=== PATIENT | male | born 1980 | race Caucasian/White ===

== ENCOUNTER 2018-07-26 18:09 | Emergency (ER) | payer BC ==
[~2018-07-26] VITALS: Ht 182.9 cm; Wt 81.8 kg
[2018-07-26 18:21] VITALS: Ht 182.9 cm; Wt 81.8 kg
[2018-07-26] MEDS ORDERED: BUSPAR5 MG (18:21)
[2018-07-26] MEDS ORDERED: ROBAXIN500 MG PO (19:57)
[2018-07-26] MEDS ORDERED: TORADOL10 MG PO (19:57)
[2018-07-26 20:56] VITALS: BP 120/82
== END 2018-07-26 20:59 | disposition home or self-care (01) ==
LOC: D.ER 18:09
DX: S29.9XXA Unspecified injury of thorax, initial encounter (principal); X58.XXXA Exposure to other specified factors, initial encounter; Y93.89 Activity, other specified; Y92.89 Other specified places as the place of occurrence of the external cause

== ENCOUNTER 2018-10-14 07:48 | Inpatient (IN) | payer BC ==
[~2018-10-14] VITALS: Ht 182.9 cm; Wt 82.7 kg
[~2018-10-14 07:48] MED LIST: BUSPAR5 MG; ROBAXIN500 MG PO; TORADOL10 MG PO
[2018-10-14 08:06] LABS: BASOPHILS 0.1 % (0-2); EOSINOPHILS 0.2 % (0-7); HEMATOCRIT 43.3 % (42.0-54.0); IMMATURE GRANULOCYTES 0.8 % (0-5); LYMPHOCYTES 5.8 % (15-50); MCH 30.3 pg (26.0-34.0); MCHC 34.6 g/dL (31.0-37.0); MCV 87.5 fL (80.0-100.0); MEAN PLATELET VOLUME 9.1 fL (7.4-10.4); MONOCYTES 7.8 % (2-11); NEUTROPHILS 85.3 % (40-80); PLATELET COUNT 220 10x3/uL (130-400); RBC 4.95 10x6/uL (4.20-6.10); RDW 13.2 % (11.5-14.5); WBC 18.5 10x3/uL (4.8-10.8)
[2018-10-14 08:24] LABS: ALBUMIN 3.6 g/dL (3.4-5.0); ALKALINE PHOSPHATASE 78 U/L (46-116); ALT (SGPT) 33 U/L (10-68); AMYLASE - SERUM 57 U/L (25-115); BILIRUBIN - TOTAL 0.54 mg/dL (0.2-1.3); CALC OSMOLALITY 279 mosm/kg (275-300); CALCIUM 8.3 mg/dL (8.5-10.1); CARBON DIOXIDE 22.7 mmol/L (21.0-32.0); CHLORIDE - SERUM 106 mmol/L (98-107); CREATININE - SERUM 1.1 mg/dL (0.6-1.3); GLUCOSE 103 mg/dL (74-106); LIPASE 165 U/L (73-393); POTASSIUM - SERUM 3.8 mmol/L (3.5-5.1); PROTEIN - SERUM 6.6 g/dL (6.4-8.2); SODIUM 139 mmol/L (136-145); TROPONIN-I < 0.017 ng/mL (0.000-0.060); UREA NITROGEN 18 mg/dL (7-18); eGFR NON AFRICAN AMERICAN 79 mL/min (90-120)
--- NOTE | 2018-10-14 08:38 | NUR ---
PT REPORTS NO RELIEF FROM MORPHINE
[2018-10-14 09:12] LABS: APPEARANCE CLEAR (CLEAR); BILIRUBIN NEGATIVE (NEGATIVE); COLOR YELLOW (YELLOW); GLUCOSE NEGATIVE (NEGATIVE); KETONE NEGATIVE (NEGATIVE); NITRITE NEGATIVE (NEGATIVE); PROTEIN NEGATIVE (NEGATIVE); SPECIFIC GRAVITY 1.015 (1.005-1.020); UROBILINOGEN NORMAL (NORMAL)
[2018-10-14 09:44] VITALS: BP 115/68
--- NOTE | 2018-10-14 11:21 | NUR ---
RECEIVED PT FROM ER, PT IS ALERT AND ORIENTED, STATED HIS ABD PAIN IS RETURNING RATED PAIN AT A 7. 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 NO NEEDS VOICED. ASSUME PT CARE
--- NOTE | 2018-10-14 13:56 | NUR ---
PT LYING IN BED WITH FAMILY AT BEDSIDE. STATED NAUSEOUS, ADMINISTERED PRN NAUSEA MEDICATION. BED IN LOW POSITION CL IN REACH. CONTINUE WITH PLAN OF CARE
--- NOTE | 2018-10-14 14:18 | NUR ---
PT TAKES BUSPAR 15MG BID. RESTARTED PT HOME MEDS BEFORE PHARMACY LEAVES FOR THE DAY. PT SPOUSE STATED PT TAKES THAT AD AN ANTI ANXIETY MED PRN BUT UNSURE OF NAME. NO OTHER NEEDS VOICED
[2018-10-14 17:09] VITALS: BP 122/72
--- NOTE | 2018-10-14 19:15 | NUR ---
RECEIVED CARE FROM DAY NURSE. LYING IN BED. REPORTS NO NEEDS AT THIS TIME. IV INFUSING PER ORDER TO PATENT LEFT FA. CALL LIGHT AT SIDE.
[2018-10-14 20:18] VITALS: BP 130/75
--- NOTE | 2018-10-15 03:32 | NUR ---
ZOFRAN GIVEN PER ORDER FOR EMESIS PINK IN COLOR. RECEIVED CONTRAST YEST.
[2018-10-15 05:34] VITALS: BP 129/70
[2018-10-15 06:24] LABS: HEMATOCRIT 41.6 % (42.0-54.0); HEMOGLOBIN 14.6 g/dL (13.5-17.5); MCH 30.4 pg (26.0-34.0); MCHC 35.1 g/dL (31.0-37.0); MCV 86.5 fL (80.0-100.0); MEAN PLATELET VOLUME 9.4 fL (7.4-10.4); PLATELET COUNT 226 10x3/uL (130-400); RBC 4.81 10x6/uL (4.20-6.10); RDW 13.4 % (11.5-14.5); WBC 23.7 10x3/uL (4.8-10.8)
[2018-10-15 06:51] LABS: CALCIUM 8.5 mg/dL (8.5-10.1); CARBON DIOXIDE 22.6 mmol/L (21.0-32.0); CHLORIDE - SERUM 104 mmol/L (98-107); GLUCOSE 110 mg/dL (74-106); POTASSIUM - SERUM 3.8 mmol/L (3.5-5.1); SODIUM 138 mmol/L (136-145)
[2018-10-15 06:52] LABS: CALC OSMOLALITY 275 mosm/kg (275-300); CREATININE - SERUM 0.8 mg/dL (0.6-1.3); UREA NITROGEN 9 mg/dL (7-18); eGFR NON AFRICAN AMERICAN > 90 mL/min (90-120)
[2018-10-15 06:57] LABS: EOSINOPHILS 1 % (0-7); LYMPHOCYTES 9 % (15-50); MONOCYTES 2 % (2-11); NEUTROPHILS 87 % (40-80); PLATELET ESTIMATE NORMAL
--- NOTE | 2018-10-15 07:30 | NUR ---
PATIENT IN BED WITH EYES CLOSED RESTING QUIETLY WITH NO COMPLAINTS AT THIS TIME. CALL LIGHT WITHIN REACH.
[2018-10-15 08:57] VITALS: BP 134/76
[2018-10-15 12:26] VITALS: BP 141/83
[2018-10-15 17:49] VITALS: BP 119/76
[2018-10-15 18:10] VITALS: Ht 182.9 cm; Wt 82.7 kg
--- NOTE | 2018-10-15 18:14 | NUR ---
PATIENT IN BED WITH EYES CLOSED RESTING QUIETLY AT THIS TIME. IV INTACT. CALL LIGHT WITHIN REACH.
--- NOTE | 2018-10-15 19:00 | NUR ---
REPORT RECEIVED AND CARE OF PT ASSUMED. PT AMBULATING IN THE HALLWAY AT THIS TIME. IV IN RIGHT FA PATENT WITH NS INFUSING AT 100 ML / HR. SALESPERSON USED CARS W/ MORPHINE IN USE FOR PAIN CONTROL. WILL MONITOR FOR NEEDS.
[2018-10-15 20:00] VITALS: BP 126/75
--- NOTE | 2018-10-15 20:26 | NUR ---
HS MEDICATIONS GIVEN TO INCLUDE ZOFRAN FOR NAUSEA. WILL CONTINUE TO MONITOR FOR NEEDS.
[2018-10-15 23:25] VITALS: BP 120/68
[2018-10-16 04:20] LABS: BASOPHILS 0.1 % (0-2); EOSINOPHILS 0.3 % (0-7); HEMATOCRIT 41.1 % (42.0-54.0); HEMOGLOBIN 14.2 g/dL (13.5-17.5); IMMATURE GRANULOCYTES 0.2 % (0-5); LYMPHOCYTES 5.7 % (15-50); MCHC 34.5 g/dL (31.0-37.0); MCV 86.7 fL (80.0-100.0); MEAN PLATELET VOLUME 9.1 fL (7.4-10.4); MONOCYTES 9.7 % (2-11); PLATELET COUNT 227 10x3/uL (130-400); RBC 4.74 10x6/uL (4.20-6.10); RDW 13.5 % (11.5-14.5)
[2018-10-16 04:22] LABS: WBC 17.1 10x3/uL (4.8-10.8)
[2018-10-16 04:30] VITALS: BP 118/71
[2018-10-16 04:37] LABS: ALBUMIN 2.8 g/dL (3.4-5.0); ALKALINE PHOSPHATASE 86 U/L (46-116); BILIRUBIN - TOTAL 0.96 mg/dL (0.2-1.3); CALCIUM 8.5 mg/dL (8.5-10.1); CHLORIDE - SERUM 102 mmol/L (98-107); CREATININE - SERUM 0.9 mg/dL (0.6-1.3); GLUCOSE 106 mg/dL (74-106); MAGNESIUM - SERUM 2.1 mg/dL (1.8-2.4); PHOSPHOROUS 2.2 mg/dL (2.5-4.9); POTASSIUM - SERUM 3.8 mmol/L (3.5-5.1); PROTEIN - SERUM 6.8 g/dL (6.4-8.2); SODIUM 136 mmol/L (136-145); eGFR NON AFRICAN AMERICAN > 90 mL/min (90-120)
[2018-10-16 04:43] LABS: ALT (SGPT) 21 U/L (10-68); CALC OSMOLALITY 271 mosm/kg (275-300); UREA NITROGEN 12 mg/dL (7-18)
[2018-10-16 07:56] VITALS: BP 128/59
[2018-10-16 12:37] VITALS: BP 129/59
--- NOTE | 2018-10-16 15:52 | NUR ---
I have reviewed this patient and I concur with the Shift Assessment completed by the Licensed Practical Nurse today this shift.
[2018-10-16 17:23] VITALS: BP 158/62
--- NOTE | 2018-10-16 19:43 | NUR ---
C/O NAUSEA ZOFRAN 4MG IVP GIVEN FOR RELIEF OF NAUSEA.
--- NOTE | 2018-10-16 20:00 | NUR ---
ASSESSMENT PER FLOWSHEET. IV PATENT LEFT FOREARM OF NS AT 100CC'S/HR. ROOFER VINYL COATING OF MORPHINE IN USE WITH SETTINGS AT 1MG Q10MIN W/10MG Q4H L/O. C/O PAIN IN ABDOMEN. REQUESTING A BOLUS 2MG GIVEN PER ROOFER VINYL COATING MACHINE.
[2018-10-16 21:31] VITALS: BP 128/69
--- NOTE | 2018-10-16 21:45 | NUR ---
MEDS GIVEN PER MAR. RESTING QUIETLY DENIES NEEDS.
--- NOTE | 2018-10-17 | NUR ---
EYES CLOSED RESPIRATIONS WITH EASE AND UNLABORED.
[2018-10-17 00:18] VITALS: BP 121/66
--- NOTE | 2018-10-17 03:00 | NUR ---
RESTING QUIETLY MEDS GIVEN PER JUL.
[2018-10-17 05:03] VITALS: BP 145/69
--- NOTE | 2018-10-17 06:31 | NUR ---
NO CHANGES IN ASSESSMENT.
--- NOTE | 2018-10-17 07:58 | NUR ---
PT IS AWAKE AND WITHOUT DISTRESS.CALL LIGHT IN REACH
[2018-10-17 08:14] LABS: BASOPHILS 0.1 % (0-2); EOSINOPHILS 1.1 % (0-7); HEMATOCRIT 42.8 % (42.0-54.0); HEMOGLOBIN 14.9 g/dL (13.5-17.5); IMMATURE GRANULOCYTES 0.3 % (0-5); LYMPHOCYTES 12.7 % (15-50); MCH 30.2 pg (26.0-34.0); MCHC 34.8 g/dL (31.0-37.0); MCV 86.6 fL (80.0-100.0); MEAN PLATELET VOLUME 8.9 fL (7.4-10.4); MONOCYTES 9.6 % (2-11); NEUTROPHILS 76.2 % (40-80); PLATELET COUNT 215 10x3/uL (130-400); RBC 4.94 10x6/uL (4.20-6.10); RDW 13.4 % (11.5-14.5)
[2018-10-17 08:25] LABS: WBC 10.8 10x3/uL (4.8-10.8)
[2018-10-17 08:28] LABS: ALBUMIN 2.6 g/dL (3.4-5.0); ALKALINE PHOSPHATASE 110 U/L (46-116); BILIRUBIN - TOTAL 0.68 mg/dL (0.2-1.3); CALC OSMOLALITY 275 mosm/kg (275-300); CALCIUM 8.5 mg/dL (8.5-10.1); CARBON DIOXIDE 24.6 mmol/L (21.0-32.0); CHLORIDE - SERUM 105 mmol/L (98-107); CREATININE - SERUM 0.8 mg/dL (0.6-1.3); GLUCOSE 97 mg/dL (74-106); POTASSIUM - SERUM 3.9 mmol/L (3.5-5.1); PROTEIN - SERUM 6.6 g/dL (6.4-8.2); SODIUM 138 mmol/L (136-145); UREA NITROGEN 12 mg/dL (7-18); eGFR NON AFRICAN AMERICAN > 90 mL/min (90-120)
[2018-10-17 08:30] LABS: ALT (SGPT) 35 U/L (10-68)
[2018-10-17] MEDS ORDERED: FLAGYL500 MG PO (08:43)
[2018-10-17] MEDS ORDERED: LEVAQUIN750 MG PO (08:43)
[2018-10-17] MEDS ORDERED: BUSPAR 15 MG TA15 MG PO (08:44)
[2018-10-17] MEDS ORDERED: FLORAJEN3 CAPS460 MG PO (08:44)
--- NOTE | 2018-10-17 09:41 | MORECARE ---
CASE MANAGEMENT DISCHARGE SUMMARY PATIENT: WALT MYRICK UNIT: [id number] ADM DATE: 10/14/18 AGE: 38 : 80 SEX: M ROOM/BED: D.2223 AUTHOR: AUDREY FLORES PHYSICIAN: REFERRING PHYSICIAN: JANUARY GIMENEZ MD DATE OF SERVICE: 10/17/18 Discharge Plan Patient Name: WALT MYRICK Facility: [facility]:[place] : 1980 Planned Disposition: Home Anticipated Discharge Date: 10/17/18 Discharge Date: Expected LOS: 3 Initial Reviewer: [email or web address] Initial Review Date: 10/17/2018 Generated: 10/17/18 10:41 am Patient Name: WALT MYRICK Page [phone] at 0941 All edits/amendments must be made on the electronic document DICTATION DATE: 10/17/18939 HUMAN RESOURCES PARTNER: ALLY 10/17/18939 RPT#: [id number] DC DATE: STATUS: ADM IN [facility] [address] [place] [address] END OF REPORT
--- NOTE | 2018-10-17 09:48 | MORECARE ---
CASE MANAGEMENT DISCHARGE SUMMARY PATIENT: WALT VALLEJO UNIT: [id number] ADM DATE: 10/14/18 AGE: 38 : 80 SEX: M ROOM/BED: D.2223 AUTHOR: MARK,DOC PHYSICIAN: REFERRING PHYSICIAN: JANUARY GIMENEZ MD DATE OF SERVICE: 10/17/18 Discharge Plan Patient Name: WALT VALLEJO Facility: [facility]:[place] : 1980 Planned Disposition: Home Anticipated Discharge Date: 10/17/18 Discharge Date: Expected LOS: 3 Initial Reviewer: [email or web address] Initial Review Date: 10/17/2018 Generated: 10/17/18 10:48 am Comments DCP- Discharge Planning Updated by [email or web address]: Sabi Becker on 10/17/18 8:[address] Patient Name: WALT VALLEJO Admission Status: ER Accout number: [id number] Admission Date: 10-14-2018 : 1980 Admission Diagnosis:DVTRCLI OF INTEST, PART UNSP, W/O PERF OR ABSCESS W/O B Attending: JANUARY GIMENEZ Current LOS: 3 Anticipated DC Date: 10-17-2018 Planned Disposition: Home Primary Insurance: [employer] Discharge Planning Comments: CM met with patient to complete initial dc planning assessment. CM educated patient on the CM role and verbal consent given by patient to complete assessment. Patient lives at home with his . At discharge patient plans to return and feels this is a safe discharge. CM discussed availability of home health, rehab services, and medical equipment. Patient denied known discharge needs at this time. Discharge home today with his , no needs identified. CM will continue to follow and will assist as needed with dc plans/needs. Housekeeping Supervisor Hotel: Sabi Becker DCPIA - Discharge Planning Initial Assessment Updated by [email or web address]: Sabi Becker on 10/17/18 9:42 am * Is the patient Alert and Oriented? Yes * How many steps to enter\exit or inside your home? 0/0 * PCP Dr. Ellsworth * Pharmacy [facility] * Preadmission Environment Home with Family * ADLs Independent * Equipment None * List name and contact numbers for known caregivers / representatives who currently or will assist patient after discharge: Pilar Vallejo [facility] - [phone] * Verbal permission to speak to the caregivers and representatives has been obtained from the patient. Yes * Community resources currently utilized None * Additional services required to return to the preadmission environment? No * Can the patient safely return to the preadmission environment? Yes * Has this patient been hospitalized within the prior 30 days at any hospital? No Patient Name: WALT VALLEJO Page [phone] at 0948 All edits/amendments must be made on the electronic document DICTATION DATE: 10/17/18947 WATER QUALITY MANAGER: ALLY 10/17/18947 RPT#: [id number] DC DATE: STATUS: ADM IN [facility] [address] [place] [address] END OF REPORT
== END 2018-10-17 10:55 | disposition home or self-care (01) | DRG 392 ==
LOC: D.ER 07:48 → D.MS 10:31
PROVIDERS: Emergency Medicine; ADMIT Family Medicine; ATTEND Family Medicine
DX: K57.92 Diverticulitis of intestine, part unspecified, without perforation or abscess without bleeding (principal); Z72.0 Tobacco use; K63.5 Polyp of colon; F41.9 Anxiety disorder, unspecified

== ENCOUNTER → 2018-12-11 06:34 | Outpatient (CLI) | payer BC ==
[2018-10-15 18:10] VITALS: BMI 24.7
[~2018-12-11 06:34] MED LIST changes: +BUSPAR 15 MG TA15 MG PO; +FLAGYL500 MG PO; +FLORAJEN3 CAPS460 MG PO; +LEVAQUIN750 MG PO
== END | disposition home or self-care (01) ==
LOC: D.MRI 06:34
PROVIDERS: ATTEND Nurse Practitioner Family
DX: M77.11 Lateral epicondylitis, right elbow (principal)